=== PATIENT | male | born 1980 | race Native Hawaiian/Other Pacific Islander ===

== ENCOUNTER 2017-12-28 10:21 | Emergency (ER) | payer OTHER ==
--- NOTE | 2017-12-28 13:24 | ED PDOC ---
Arrival/HPI - General Chief Complaint: Lower Extremity Problem/Injury Time Seen by Provider: 12/28/17 10:58 - History of Present Illness Narrative History of Present Illness (Text): 12/28/17 13:07 Patient is a 37 year old male with no significant past medical history who present to the ED for acute traumatic patellar dislocation. Patient says he was in [place] on Tuesday playing basketball when he was hit from behind during a layup causing him to land wring and injuring his knee. Patient was seen in an ER in [place] where they did Xrays and saw his patella was displaced proximally. Patient says the ED doctor was going to try to relocate his patella but the orthopedic surgeon told them not to because its likely that he ruptured a tendon and it will not stay in place. Patient was discharged from there and told to follow up with an orthopedic surgeon for an MRI. Patient says that is why he came to the ED today, for follow up. Patient is currently in an immobilizer having only mild pain and says it only hurts when he tries to bend his knee. Patient denies any numbness or tingling in the leg or foot. (Dee Washington) Past Medical History - Infectious Disease Hx of Infectious Diseases: None - Psychiatric Hx Substance Use: No - Anesthesia Hx Anesthesia: No Family/Social History Family/Social History: Unknown Family HX Smoking Status: Unknown If Ever Smoked Hx Alcohol Use: No Hx Substance Use: No Allergies/Home Meds Allergies/Adverse Reactions: Allergies No Known Allergies Allergy (Verified 12/28/17 12:23) Review of Systems - Physician Review All systems were reviewed & negative as marked: Yes - Review of Systems Constitutional: Normal. absent: Fatigue, Fevers Respiratory: Normal. absent: SOB, Cough Cardiovascular: Normal. absent: Chest Pain, Palpitations, Edema, Calf Pain Gastrointestinal: Normal. absent: Abdominal Pain Musculoskeletal: Arthralgias (left knee), Joint Swelling (left knee). absent: Back Pain, Neck Pain Skin: Normal. absent: Rash, Laceration, Cellulitis Neurological: Normal. absent: Headache, Dizziness Hemo/Lymphatic: Normal Physical Exam Temperature: Afebrile Blood Pressure: Hypertensive Pulse: Tachycardic Respiratory Rate: Normal Appearance: Positive for: Well-Appearing, Non-Toxic, Comfortable Pain Distress: Mild Mental Status: Positive for: Alert and Oriented X 3 - Systems Exam Head: Present: Atraumatic, Normocephalic Pupils: Present: PERRL Extroacular Muscles: Present: EOMI Mouth: Present: Moist Mucous Membranes Neck: Present: Normal Range of Motion Respiratory/Chest: Present: Clear to Auscultation, Good Air Exchange. No: Respiratory Distress, Accessory Muscle Use Cardiovascular: Present: Regular Rate and Rhythm, Normal S1, S2. No: Murmurs Abdomen: Present: Normal Bowel Sounds. No: Tenderness, Distention, Peritoneal Signs Back: Present: Normal Inspection. No: Midline Tenderness, Paraspinal Tenderness Upper Extremity: Present: Normal Inspection. No: Cyanosis, Edema Lower Extremity: Present: NORMAL PULSES, Tenderness (left knee medial>lateral), Swelling (left knee), Capillary Refill < 2 s. No: Edema, CALF TENDERNESS Neurological: Present: GCS=15, Speech Normal Skin: Present: Warm, Dry. No: Rashes Psychiatric: Present: Alert, Oriented x 3, Normal Insight, Normal Concentration Vital Signs Temp Pulse Resp BP Pulse Ox 12/28/17 15:50 98.3 F 74 18 129/83 99 12/28/17 12:19 98 F 104 H 20 149/101 H 97 Medical Decision Making ED Course and Treatment: Impression: In agreement with resident note, which includes further HPI details. Patient was seen and evaluated with resident, came up with plan and treatment together.Pt presented for left knee pain/patellar dislocation s/p sports injury. Plan: -- XR Left Knee -- Reassess and disposition (Echo Donovan) 12/28/17 15:12 Left knee 3 view XR results: PROCEDURE: Left Knee Radiographs. HISTORY: Pain. COMPARISON: None. FINDINGS: BONES: Patella is superiorly located likely dislocation. Apparent tiny elliptical shaped bone fragment within the anterior soft tissues subjacent to the inferior margin of the patella, likely representing a tiny avulsion fracture possibly arising from a fractured anterior inferior patella enthesophyte. . 2nd smaller somewhat elliptical shaped bony density on seen adjacent to the expected location of anterior inferior patella enthesophyte may also represent a tiny bony fragment. Remaining osseous structures appear intact JOINTS: Moderate to fairly significant anterior soft tissue swelling with thickening of the patellar tendon. JOINT EFFUSION: There appears to be a small suprapatellar joint effusion OTHER FINDINGS: None. IMPRESSION: Patella is superiorly located likely dislocation. Apparent tiny elliptical shaped bone fragment within the anterior soft tissues subjacent to the inferior margin of the patella, likely representing a tiny avulsion fracture possibly arising from a fractured anterior inferior patella enthesophyte. . 2nd smaller somewhat elliptical shaped bony density on seen adjacent to the expected location of anterior inferior patella enthesophyte may also represent a tiny bony fragment. . Remaining osseous structures appear intact. Moderate to fairly significant anterior soft tissue swelling with thickening of the patellar tendon. (Dee Washington) - RAD Interpretation Radiology Orders: 12/28/17 14:13 KNEE WITH PATELLA LEFT 3 VIEW [RAD] Stat - PA / [employer] APPRENTICE / Resident Statement / has reviewed & agrees with the documentation as recorded. / has examined the patient and agrees with the treatment plan. Disposition/Present on Arrival - Present on Arrival Any Indicators Present on Arrival: No History of DVT/PE: No History of Uncontrolled Diabetes: No Urinary Catheter: No History of Decub. Ulcer: No History Surgical Site Infection Following: None - Disposition Have Diagnosis and Disposition been Completed?: Yes Disposition Time: 16:30 - Disposition Diagnosis: Patellar dislocation, Patellar tendon rupture, Knee fracture Disposition: HOME/ ROUTINE Condition: GOOD Discharge Instructions (ExitCare): Dislocated Kneecap (DC), Knee Pain Additional Instructions: Use knee immobilizer. Use crutches. You have a patella/knee injury, likely tendon rupture injury. For any fever, swelling, increased pain, any numbness or weakness, any calf pain or swelling, any persistent or worsening of any symptoms, get rechecked. You must follow-up with orthopedic doctor this week. Take pain medication as directed, use with caution for reviewed side effects. Do not drive or operate heavy machinery. Return for any new or worsening of symptoms. Prescriptions: oxyCODONE/Acetaminophen [Percocet 5/325 mg Tab] 1 ea PO Q6 PRN #10 tab PRN Reason: severe pain Referrals: [facility] [Outside] - Follow up with primary [facility] [Outside] - Follow up with primary [facility] [Outside] - Follow up with primary Martin Magana MD [Staff Provider] - Follow up with primary Forms: [employer] ([place]ian)
--- NOTE | 2017-12-28 14:52 | RAD ---
PROCEDURE: Left Knee Radiographs. HISTORY: Pain. COMPARISON: None. FINDINGS: BONES: Patella is superiorly located likely dislocation. Apparent tiny elliptical shaped bone fragment within the anterior soft tissues subjacent to the inferior margin of the patella, likely representing a tiny avulsion fracture possibly arising from a fractured anterior inferior patella enthesophyte. . 2nd smaller somewhat elliptical shaped bony density on seen adjacent to the expected location of anterior inferior patella enthesophyte may also represent a tiny bony fragment. Remaining osseous structures appear intact JOINTS: Moderate to fairly significant anterior soft tissue swelling with thickening of the patellar tendon. JOINT EFFUSION: There appears to be a small suprapatellar joint effusion OTHER FINDINGS: None. IMPRESSION: Patella is superiorly located likely dislocation. Apparent tiny elliptical shaped bone fragment within the anterior soft tissues subjacent to the inferior margin of the patella, likely representing a tiny avulsion fracture possibly arising from a fractured anterior inferior patella enthesophyte. . 2nd smaller somewhat elliptical shaped bony density on seen adjacent to the expected location of anterior inferior patella enthesophyte may also represent a tiny bony fragment. . Remaining osseous structures appear intact. Moderate to fairly significant anterior soft tissue swelling with thickening of the patellar tendon.
[2017-12-28 16:25] VITALS: BP 129/83; PULSE 74; RESP 18; TEMP 98.3; O2SAT 99
== END 2017-12-28 16:28 | disposition home or self-care (01) ==
LOC: ED 10:21
DX: S83.005A Unspecified dislocation of left patella, initial encounter (principal); S86.912A Strain of unspecified muscle(s) and tendon(s) at lower leg level, left leg, initial encounter; S82.002A Unspecified fracture of left patella, initial encounter for closed fracture; Y93.67 Activity, basketball